=== PATIENT | male | born 1990 | race Caucasian/White ===

== ENCOUNTER 2021-05-25 05:11 | Emergency (ER) | payer SELFPAY ==
[~2021-05-25 05:11] MED LIST: VOLTAREN **OUT75 MG PO
[2021-05-25 06:21] LABS: BASOPHIL 0.2 % (0-2); EOSINOPHIL 0 % (0-5); HGB 18.5 g/dl (13.2-18.0); LYMPHOCYTE 2.9 % (15-48); MCH 29.4 pg (25.0-31.0); MCV 88.9 fL (78.0-100.0); MONOCYTE 11.7 % (0-12); MPV 8.4 fL (6.0-9.5); NEUTROPHIL 80.4 % (41-80); NRBC 0.1; PLT 535 K/uL (150-400); RDW 13.9 % (11.5-14.0)
[2021-05-25 06:25] LABS: WBC 33.3 K/uL (4.0-10.5)
[2021-05-25 06:45] LABS: BILIRUBIN NEGATIVE (NEGATIVE); BLOOD 3+ Ery/uL (NEGATIVE); CLARITY CLEAR (CLEAR); COLOR YELLOW (YELLOW); GLUCOSE (U) NORMAL (NORMAL); LEUKOCYTES NEGATIVE Leu/uL (NEGATIVE); NITRITE NEGATIVE (NEGATIVE); PROTEIN 1+ mg/dL (NEGATIVE); SPECIFIC GRAVITY >=1.030 (1.001-1.030); UROBILINOGEN 0.2 mg/dL (0.2-1.0); pH 5.5 (5.0-9.0)
[2021-05-25 06:48] LABS: AMPHETAMINES POSITIVE (NEGATIVE); BARBITURATES NEGATIVE (NEGATIVE); ECSTASY (MDMA) NEGATIVE (NEGATIVE); MARIJUANA (THC) NEGATIVE (NEGATIVE); METHADONE NEGATIVE (NEGATIVE); OPIATES NEGATIVE (NEGATIVE); OXYCODONE NEGATIVE (NEGATIVE)
[2021-05-25 06:56] LABS: MUCOUS TRACE
[2021-05-25 07:13] LABS: LACTIC ACID 5.4 mmol/L (0.4-1.9)
[2021-05-25 07:15] LABS: ALBUMIN 3.9 g/dL (3.4-5.0); BILIRUBIN - TOTAL 0.3 mg/dL (0.2-1.0); BUN/CREAT RATIO (CALC) 14.9 RATIO; CREATININE 1.68 mg/dL (0.67-1.17); GLOBULIN (CALCULATION) 3.7 g/dL; MAGNESIUM 2.2 mg/dL (1.8-2.4); PHOSPHORUS 10.8 mg/dL (2.6-4.7); POTASSIUM 5.5 mmol/L (3.5-5.1); TOTAL PROTEIN 7.6 g/dL (6.4-8.2)
[2021-05-25 17:13] LABS: BUN 31 mg/dL (7-18); BUN/CREAT RATIO (CALC) 17.4 RATIO; CHLORIDE 102 mmol/L (98-107); CO2 (BICARBONATE) 23 mmol/L (21-32); CPK >7000 U/L (39-308); CREATININE 1.78 mg/dL (0.67-1.17); GLUCOSE 120 mg/dL (74-106); POTASSIUM 5.4 mmol/L (3.5-5.1)
[2021-05-26 01:11] LABS: HCT 47.7 % (42.0-52.0); HGB 16.1 g/dl (13.2-18.0); MCH 29.3 pg (25.0-31.0); MCHC 33.8 g/dL (32.0-36.0); MCV 86.9 fL (78.0-100.0); MPV 8.4 fL (6.0-9.5); RBC 5.49 M/uL (4.70-6.00); RDW 14.4 % (11.5-14.0); WBC 23.7 K/uL (4.0-10.5)
[2021-05-26 01:30] LABS: BUN/CREAT RATIO (CALC) 15.5 RATIO; CREATININE 1.68 mg/dL (0.67-1.17); MAGNESIUM 1.8 mg/dL (1.8-2.4); PHOSPHORUS 3.8 mg/dL (2.6-4.7)
[2021-05-26 01:38] LABS: POTASSIUM 3.8 mmol/L (3.5-5.1)
== END 2021-05-26 16:40 | disposition other institution (70) ==
LOC: FER 05:11
PROVIDERS: Emergency Medicine
DX: T43.621A Poisoning by amphetamines, accidental (unintentional), initial encounter (principal); A41.9 Sepsis, unspecified organism; I48.91 Unspecified atrial fibrillation; F17.200 Nicotine dependence, unspecified, uncomplicated; Z88.8 Allergy status to other drugs, medicaments and biological substances
CPT/HCPCS: 36415; 71045; 80048; 80053; 80305; 81001; 82550; 83605; 83735; 83880; 84100; 84145; 84443; 84484; 85025; 87040; 93005; 96372; J0282; J1650; J1940; J2543; J7030; J7042